=== PATIENT | male | born 1955 | race Two or more races ===

== ENCOUNTER 2025-07-24 09:00 | Day surgery (SDC) | payer MEDICARE, OTHER ==
[~2025-07-24 09:00] MED LIST: Albuterol 0.083% 2.5 MG/3 ML Neb Soln NEB PRN; Naloxone 0.4 MG/ML SDV IVPUSH PRN; Ondansetron 4 MG/2 ML SDV IVPUSH PRN; ceFAZolin 2 GM in Water For Injection, Sterile 20 ML IVPUSH ONE; fentaNYL 50 MCG/ML SDV IVPUSH PRN
[2025-07-24] MEDS ORDERED: Midazolam 1 MG/ML 2 ML SDV ONE (09:54)
[2025-07-24] MEDS ORDERED: fentaNYL 100 MCG/2 ML SDV ONE ×2 (09:54→11:40)
[2025-07-24] MEDS ORDERED: Propofol 200 MG/20 ML SDV ONE (09:54)
[2025-07-24] MEDS: Lactated Ringers 1,000 ML IV SCH (10:30)
[2025-07-24] MEDS ORDERED: propofoL 500 MG/50 ML 0 ML ONE (11:40)
[2025-07-24] MEDS ORDERED: Ondansetron 4 MG/2 ML SDV ONE (11:40)
[2025-07-24] MEDS ORDERED: Bupivacaine 0.5%/EPINEPHrine 1:200,000 30 ML SDV ONE (11:45)
[2025-07-24] MEDS ORDERED: propofoL 500 MG/50 ML 50 ML ONE (12:30)
[2025-07-24 14:51] VITALS: BP 124/76; PULSE 56
== END 2025-07-24 13:05 | disposition home or self-care (01) ==
LOC: MW.SDS 09:00
PROVIDERS: ATTEND Orthopaedic Surgery
DX: G56.01 Carpal tunnel syndrome, right upper limb (principal); K21.9 Gastro-esophageal reflux disease without esophagitis; E11.9 Type 2 diabetes mellitus without complications; F17.210 Nicotine dependence, cigarettes, uncomplicated; I10 Essential (primary) hypertension; E78.5 Hyperlipidemia, unspecified; I25.10 Atherosclerotic heart disease of native coronary artery without angina pectoris; E66.9 Obesity, unspecified; Z79.899 Other long term (current) drug therapy
CPT/HCPCS: 64721; J0690; J2003; J2250; J2371; J2405; J2704; J2765; J3010; J7120; 01810; J0665